=== PATIENT | male | born 1990 | race Caucasian/White ===

== ENCOUNTER 2018-09-15 10:38 | Day surgery (SDC) | payer OTHER ==
[2018-09-15] MEDS ORDERED: CEFAZOLIN 2 GM/50 ML (PMX) 50 ML IVPB (11:30)
[2018-09-15] MEDS ORDERED: LACTATED RINGER'S 1,000 ML IV* (11:30)
[2018-09-15] MEDS ORDERED: PROPOFOL 20 ML (13:57)
[2018-09-15] MEDS ORDERED: ROCURONIUM 50 MG INJ (13:58)
[2018-09-15] MEDS ORDERED: BUPIVACAINE 0.5% (SDV) 30 ML INJ (13:59)
[2018-09-15] MEDS ORDERED: FENTAnyl 50 MCG/ML VIAL (14:00)
[2018-09-15] MEDS ORDERED: LIDOCAINE 2% (SDV) 5 ML INJ (14:18)
[2018-09-15] MEDS ORDERED: CEFAZOLIN 1 GM INJ (14:18)
[2018-09-15] MEDS ORDERED: DEXAMETHASONE 4 MG/ML 5 ML INJ (14:26)
[2018-09-15] MEDS ORDERED: ONDANSETRON 4 MG INJ (14:26)
[2018-09-15] MEDS: POLYMYXIN/BACITRACIN 1L IRRIG IRR (14:28)
[2018-09-15] MEDS ORDERED: GLYCOPYRROLATE 0.4 MG INJ (14:53)
[2018-09-15] MEDS ORDERED: NEOSTIGMINE 3 MG/3 ML SYRINGE (14:53)
[2018-09-15] MEDS ORDERED: EPHEDrine SULFATE 50 MG/5 ML SYG IV (15:30)
[2018-09-15] MEDS ORDERED: KETOROLAC 30 MG INJ IV (15:30)
[2018-09-15] MEDS ORDERED: MIDAZOLAM 1 MG/ML 2 ML INJ IV (15:30)
[2018-09-15] MEDS ORDERED: OXYCODONE/ACETAMINOPHEN (5/325) TAB PO ×2 (15:30)
[2018-09-15] MEDS ORDERED: ALBUTEROL 0.083% (NEB) 2.5 MG/3 ML AMP HHN (15:30)
[2018-09-15] MEDS ORDERED: hydrALAzine 20 MG INJ IV (15:30)
[2018-09-15] MEDS ORDERED: ONDANSETRON 4 MG INJ IV (15:30)
[2018-09-15] MEDS ORDERED: FENTAnyl 50 MCG/ML VIAL IV ×3 (15:30)
[2018-09-15] MEDS ORDERED: LABETALOL HCL 20MG INJ IV (15:30)
[2018-09-15] MEDS ORDERED: DIPHENHYDRAMINE 50 MG INJ IV (15:30)
[2018-09-15] MEDS ORDERED: HYDROmorphONE 1 MG/5 ML IV SYRINGE IV ×3 (15:30)
[2018-09-15] MEDS ORDERED: MEPERIDINE 25 MG INJ IV (15:30)
[2018-09-15] MEDS ORDERED: METOCLOPRAMIDE 10 MG INJ IV (15:30)
== END 2018-09-15 16:55 | disposition home or self-care (01) ==
LOC: SDS 10:38
DX: S62.326D Displaced fracture of shaft of fifth metacarpal bone, right hand, subsequent encounter for fracture with routine healing (principal); W22.8XXD Striking against or struck by other objects, subsequent encounter; J45.909 Unspecified asthma, uncomplicated
CPT/HCPCS: 26615; 73130-RT